=== PATIENT | male | born 1970 | race Caucasian/White ===

== ENCOUNTER 2016-08-02 21:24 | Emergency (ER) | payer OTHER ==
[2016-08-03 00:05] LABS: BASOPHIL 0.4 % (0-2); EOSINOPHIL 2.3 % (0-5); HCT 39.3 % (42.0-52.0); HGB 13.6 g/dl (13.2-18.0); LYMPHOCYTE 22.9 % (15-48); MCH 29.6 pg (25.0-31.0); MCHC 34.6 g/dL (32.0-36.0); MCV 85.6 fL (78.0-100.0); MONOCYTE 11.6 % (0-12); MPV 9.7 fL (6.0-9.5); NEUTROPHIL 62.8 % (41-80); PLT 198 K/uL (150-400); RBC 4.59 M/uL (4.70-6.00); RDW 14.9 % (11.5-14.0); WBC 6.9 K/uL (4.0-10.5)
[2016-08-03 00:13] LABS: INR 0.96 (0.9-1.2); PROTHROMBIN TIME 12.4 SECONDS (11.7-14.0); PTT 27.7 SECONDS (23.2-31.4)
[2016-08-03 00:19] LABS: CREATININE 0.8 mg/dL (0.7-1.2); POTASSIUM 3.9 mmol/L (3.5-5.1)
[2016-09-30] MEDS ORDERED: ZESTRIL5 MG PO (11:05)
[2016-09-30] MEDS ORDERED: ABILIFY5 MG PO (11:06)
[2016-09-30] MEDS ORDERED: NORCO 5-325 TA1 EACH PO (11:06)
[2016-09-30] MEDS ORDERED: DITROPAN XL *OUT5 MG PO (11:06)
[2016-09-30] MEDS ORDERED: FLEXERIL10 MG PO (11:06)
[2016-09-30] MEDS ORDERED: NEURONTIN300 M1 PO (11:06)
[2016-09-30] MEDS ORDERED: MELOXICAM15 MG PO (11:07)
[2016-09-30] MEDS ORDERED: FLOMAX0.4 MG PO (11:07)
[2016-09-30] MEDS ORDERED: ZOLOFT100 MG PO (11:07)
[2016-09-30] MEDS ORDERED: TIZANIDINE HCL4 MG PO (11:07)
[2016-09-30] MEDS ORDERED: GLUCOPHAGE1000 MG PO (11:07)
[2016-09-30] MEDS ORDERED: PRILOSEC20 MG PO (11:07)
[2016-09-30] MEDS ORDERED: LITHIUM CARBON450 MG PO (11:08)
[2016-09-30] MEDS ORDERED: GLIPIZIDE5 MG PO (11:08)
[2016-09-30] MEDS ORDERED: SYNTHROID100 MCG PO (11:08)
[2016-09-30] MEDS ORDERED: ASPIRIN CHEWABL81 MG PO (11:09)
[2016-09-30] MEDS ORDERED: LOPRESSOR25 MG PO (11:09)
== END 2016-08-03 01:37 | disposition home or self-care (01) ==
LOC: FER 21:24
PROVIDERS: Emergency Medicine
DX: E11.9 Type 2 diabetes mellitus without complications (principal); I10 Essential (primary) hypertension; F31.30 Bipolar disorder, current episode depressed, mild or moderate severity, unspecified; Z79.84 Long term (current) use of oral hypoglycemic drugs; Z79.899 Other long term (current) drug therapy
CPT/HCPCS: 36415; 80048; 85025; 85610; 85730; 93971

== ENCOUNTER 2020-12-12 16:19 | Emergency (ER) | payer OTHER ==
[~2020-12-12 16:19] MED LIST: ABILIFY5 MG PO; ASPIRIN CHEWABL81 MG PO; DITROPAN XL *OUT5 MG PO; FLEXERIL10 MG PO; FLOMAX0.4 MG PO; GLIPIZIDE5 MG PO; GLUCOPHAGE1000 MG PO; LITHIUM CARBON450 MG PO; LOPRESSOR25 MG PO; MELOXICAM15 MG PO; NEURONTIN300 M1 PO; NORCO 5-325 TA1 EACH PO; PRILOSEC20 MG PO; SYNTHROID100 MCG PO; TIZANIDINE HCL4 MG PO; ZESTRIL5 MG PO; ZOLOFT100 MG PO
[2020-12-12] MEDS ORDERED: BACLOFEN 10MG T10 MG PO (18:51)
[2020-12-12] MEDS ORDERED: NAPROXEN500 MG PO (18:51)
== END 2020-12-12 19:10 | disposition home or self-care (01) ==
LOC: FER 16:19
DX: S00.83XA Contusion of other part of head, initial encounter (principal); S80.212A Abrasion, left knee, initial encounter; S80.211A Abrasion, right knee, initial encounter; M54.2 Cervicalgia; M79.672 Pain in left foot; I10 Essential (primary) hypertension; E11.9 Type 2 diabetes mellitus without complications; V47.5XXA Car driver injured in collision with fixed or stationary object in traffic accident, initial encounter; Y92.410 Unspecified street and highway as the place of occurrence of the external cause
CPT/HCPCS: 70450; 72125; 73564; 73650